=== PATIENT | male | born 1930 | race Caucasian/White ===

== ENCOUNTER → 2017-12-08 | Day surgery (SDC) | payer MEDICARE ==
[~2017-12-08] VITALS: Ht 167.6 cm; Wt 68.1 kg
[~2017-12-08] MED LIST: CALC1TAB87 PO; CALC667C PO; CHLORHEXIDINE GLUCONATE 2 % 1 PACK (2 CLOTHS) TOPICAL PRN; CLOPIDOGREL 75 MG TAB PO ONE; DEXAMETHASONE SOD PHOS 4 MG/ML VIAL IV ONE; DO NOT ADM ANY ANTICOAGULANT DRUGS PRN; DONE10TA7 PO; HEPARIN SODIUM - IV 10,000 UNITS/10 ML VIAL ONE; HEPARIN-NS/PF INJ 500 ML ONE; HYDR-3133 PO; INSULIN HUMAN REGULAR 1,000 UNITS/10 ML VIAL SQ PRN; IOHEXOL 350 MG/ML 100 ML BTL (for RAD DIAG) IVCONTRAST ONE; LACTATED RINGER'S 1000 ML IV PRN; LATA0.002 EACH EYE; LIDOCAINE HCL 1% PF 5 ML SYRINGE OTHER ONE; METOPROLOL TARTRATE 25 MG TAB PO PRN; ONDANSETRON HCL 4 MG/2 ML VIAL IV ONE; POVIDONE IODINE 5% (ANTISEPSIS KIT) 4 APPLICATIONS EACH NARE PRN; PROPOFOL 200 MG/20 ML AMP IV ONE; SODIUM CHLORID 0.9% 500 ML IV PRN; WARF-20 PO; ceFAZolin 2 GM PREMIX 50 ML ONE; ePHEDrine/NS 25 MG/5 ML SYRINGE IV ONE
[2017-12-08 11:54] LABS: BASOPHIL # 0.1 TH/MM3 (0-0.2); BASOPHIL % 1.3 % (0.0-2.0); EOSINOPHIL # 0.3 TH/MM3 (0-0.4); EOSINOPHIL % 3.9 % (0.0-4.0); HEMATOCRIT 32.8 % (39.0-51.0); HEMOGLOBIN 10.6 GM/DL (13.0-17.0); LYMPH % 8.6 % (9.0-44.0); LYMPHOCYTE # 0.7 TH/MM3 (1.0-4.8); MEAN CELL VOLUME 97.2 FL (80.0-100.0); MEAN CORPUSCULAR HEMOGLOBIN 31.6 PG (27.0-34.0); MEAN CORPUSCULAR HGB CONC 32.5 % (32.0-36.0); MEAN PLATELET VOLUME 7.9 FL (7.0-11.0); MONO % 7.9 % (0.0-8.0); MONOCYTE # 0.6 TH/MM3 (0-0.9); NEUT % 78.3 % (16.0-70.0); PLATELET COUNT 313 TH/MM3 (150-450); RED BLOOD COUNT 3.37 MIL/MM3 (4.50-5.90); RED CELL DISTRIBUTION WIDTH 15.7 % (11.6-17.2); WHITE BLOOD COUNT 7.7 TH/MM3 (4.0-11.0)
[2017-12-08 12:04] LABS: INTERNATIONAL NORMALIZED RATIO 1.7 RATIO; PROTHROMBIN TIME - PATIENT 16.7 SEC (9.8-11.6)
[2017-12-08 12:17] LABS: BICARBONATE 21.1 MEQ/L (21.0-32.0); CALCIUM 9.1 MG/DL (8.5-10.1)
[2017-12-08 12:25] LABS: CREATININE 12.24 MG/DL (0.60-1.30)
--- NOTE | 2017-12-08 13:07 | PD.VS.PN ---
Pre-operative Note Pre-operative diagnosis: PAD, R LE tissue loss Planned procedure: Aortogram w/ R LE angiogram, possible endovascular intervention Interval History: No change that would preclude surgery. TL R foot stable. [place] sick yesterday but better today. Last HD Tuesday. Labs: Laboratory Results Test 12/08/17 11:30 Anion Gap 15 MEQ/L (5-15) Blood Urea Nitrogen 63 MG/DL (7-18) Creatinine 12.24 MG/DL (0.60-1.30) Random Glucose 89 MG/DL (74-106) Calcium Level 9.1 MG/DL (8.5-10.1) Sodium Level 140 MEQ/L (136-145) Potassium Level 5.1 MEQ/L (3.5-5.1) Chloride Level 104 MEQ/L (98-107) Carbon Dioxide Level 21.1 MEQ/L (21.0-32.0) Hematocrit 32.8 % (39.0-51.0) Hemoglobin 10.6 GM/DL (13.0-17.0) Mean Corpuscular Hemoglobin 31.6 PG (27.0-34.0) Mean Corpuscular Hemoglobin Concent 32.5 % (32.0-36.0) Mean Corpuscular Volume 97.2 FL (80.0-100.0) Mean Platelet Volume 7.9 FL (7.0-11.0) Platelet Count 313 TH/MM3 (150-450) Prothromb Time International Ratio 1.7 RATIO Red Blood Count 3.37 MIL/MM3 (4.50-5.90) Red Cell Distribution Width 15.7 % (11.6-17.2) White Blood Count 7.7 TH/MM3 (4.0-11.0) Blood: none needed Imaging: will make in OR Orders: NPO Post-operative destination: PACU Operative site marked: Yes Consent: Informed consent has been obtained from Javi Graff. I have explained the procedure in detail and discussed the risks, benefits, and potential complications. All questions have been answered. Patient contact information: [phone] Estiven Maurice MD Dec 08, 2017 13:06
--- NOTE | 2017-12-08 14:40 | HHI.PR ---
cc: Estiven Maurice MD Immediate Post Op Note Procedure Date: Dec 08, 2017 Pre Op Diagnosis: PAD, R LE tissue loss Post Op Diagnosis: PAD, R LE tissue loss Surgeon: Estiven Maurice Insurance Counselor(s): none Procedure: Aortogram w/ R LE angiogram R SFA MATERIAL DAMAGE APPRAISER/stent (6x80) L FURNITURE DETAILER Angioseal Findings: proximal SFA occlusion, successful recanalization and stent Additional Information: AT runoff to foot Complications: none Specimen(s) removed: none Estimated blood loss: 10mL Anesthesia: LMA Drains: None Patient to: PACU Patient Condition: Good Implant/Devices: SEE IMPLANT LOG (if applicable) Date/Time of Procedure: SEE SURGICAL CARE RECORD Estiven Maurice MD Dec 08, 2017 14:40
--- NOTE | 2017-12-08 15:18 | MP ---
cc: Estiven Maurice MD DATE OF OPERATION: 12/08/2017 PREOPERATIVE DIAGNOSES: Right lower extremity tissue loss, peripheral arterial occlusive disease, end-stage renal disease. POSTOPERATIVE DIAGNOSES: Right lower extremity tissue loss, peripheral arterial occlusive disease, end-stage renal disease. PROCEDURE PERFORMED: 1. Aortogram with right lower extremity angiogram. 2. Right SFA angioplasty and stent with a 6 x 80 self-expanding stent. 3. Left common femoral artery Angio-Seal. ATTENDING SURGEON: Estiven Maurice MD ANESTHESIA: General. INDICATION FOR PROCEDURE: Mr. Graff is an 87-year-old gentleman with peripheral arterial occlusive disease and a distal toe tip tissue loss. He has no palpable popliteal or pedal pulses and is taken to the operating room for angiographic evaluation and treatment. There is no prior catheter-based imaging available for my review. DESCRIPTION OF PROCEDURE: Informed consent was obtained from the patient. He was taken to the operating room and placed supine on the operating room table. An appropriate timeout was taken to ensure the patient's identity, operative site, and planned procedure. The administration of 2 grams of Ancef was initiated prior to stent implant. The patient will be discontinued after a single preoperative dose. Everyone in the room agreed with the timeout and we proceeded. His bilateral groins were prepped and draped and the left groin was accessed with a 21-gauge micropuncture needle. This was exchanged using Seldinger technique for a micropuncture sheath, through which was 0.035 Glidewire was introduced and the micropuncture sheath was changed for a 5-[place] sheath. A VCF catheter was placed over the wire through the sheath and aortogram with pelvic arteriograms obtained. The Glidewire was reintroduced and navigated down to the right common femoral artery and the VCF catheter was exchanged for a glide catheter, which was used to navigate down to the right common femoral artery and a right lower extremity arteriogram was obtained. The patient was systemically heparinized with 5000 units of IV heparin. A 0.05 Storq wire was introduced and a glide catheter was removed and the 5-[place] sheath removed and a 6-[place]ayan 55 cm Rommel sheath was introduced. A CXI catheter was placed over the Storq wire and the Storq was exchanged for a SECURITY ALARM TECHNICIAN wire. Using the SECURITY ALARM TECHNICIAN wire and CXI catheter, we were able to navigate past the SFA occlusion into the mid SFA, which was patent. An angiogram confirmed this. The entire area was angioplastied with a 5 mm balloon. The completion angiogram showed a residual dissection and this was treated with a 6 x 80 stent, which was postdilated to 5 mm. Completion angiogram showed excellent result without any recoil extravasation and no flow-limiting lesions nor extravasations and the wire and catheter and sheath were removed and the groin was closed with an Angio-Seal. There were no complications. I was present and scrubbed and performed the entire procedure. INTERPRETATION OF IMAGES: The patient has patent infrarenal aorta, common iliac arteries, external iliac artery and hypogastric arteries bilaterally. The right common femoral artery was patent. The profunda is patent. The SFA is occluded proximally but reconstitutes in the mid SFA. The popliteal artery was patent. The anterior tibial artery was patent. The peroneal artery is diseased, but patent down to the ankle and the posterior tibial artery is occluded. After angioplasty and stenting of the SFA, there were no flow-limiting lesions and no hemodynamically significant stenosis. MD WILFRID Alston/BLAS , 02:45 PM , 03:17 PM
[2017-12-08 17:09] VITALS: BP 142/57; PULSE 55; RESP 16; TEMP 97.7; O2SAT 95
--- NOTE | 2017-12-08 19:11 | EKG ---
Date Performed: 12/08/2017 Time Performed: 10:55:04 PTAGE: 87 years EKG: Sinus rhythm BORDERLINE LEFT AXIS DEVIATION MODERATE INTRAVENTRICULAR CONDUCTION DELAY BORDERLINE ECG NO PREVIOUS TRACING DOCTOR: Juvenal Gaona Interpretating Date/Time 12/08/2017 19:08:25
== END | disposition home or self-care (01) ==
LOC: HSDC 10:15
PROVIDERS: ATTEND Surgery
DX: I73.9 Peripheral vascular disease, unspecified (principal); I12.0 Hypertensive chronic kidney disease with stage 5 chronic kidney disease or end stage renal disease; N18.6 End stage renal disease; D63.1 Anemia in chronic kidney disease; Z99.2 Dependence on renal dialysis; Z01.818 Encounter for other preprocedural examination
CPT/HCPCS: 01270; 37226; 75710; 80048; 85025; 85610; 93005; C1725; C1769; C1876; J0690; J1100; J1644; J2405; J7040; Q9967

== ENCOUNTER 2018-07-27 06:16 | Inpatient (IN) ==
[2018-07-27] MEDS ORDERED: Metoprolol Tartrate 25 MG Tablet PO ONE (06:47)
[2018-07-27] MEDS ORDERED: Chlorhexidine Gluconate 2% 1 Pack (2 Cloths) TOPICAL ONE (06:47)
[2018-07-27] MEDS ORDERED: Sodium Chlor 0.9% Inj 500 ML IV.SIG SCH (07:00)
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
[2018-07-27] MEDS ORDERED: Heparin 10,000 UNITS/10 ML Vial (for IV use) ONE (07:48)
[2018-07-27] MEDS ORDERED: Protamine Sulfate Inj 50 MG/5 ML Vial ONE ×2 (07:48→09:58)
[2018-07-27] MEDS ORDERED: ceFAZolin 2 GM Premix Inj 0 GM/0 ML PIGGYBACK IV.SIG ONE (07:48)
[2018-07-27] MEDS ORDERED: Thrombin Topical 20,000 UNIT Spray Kit TOPICAL ONE ×2 (07:49→09:48)
[2018-07-27] MEDS ORDERED: Bupivacaine PF 0.5% Inj 10 ML Vial ONE (07:49)
[2018-07-27] MEDS ORDERED: Heparin/NS PF Inj 500 ML ONE (07:49)
[2018-07-27] MEDS ORDERED: Lidocaine PF 1% Inj 5 ML Syringe OTHER ONE (08:09)
[2018-07-27] MEDS ORDERED: Neostigmine Inj 5 MG/5 ML Syringe IV.PUSH ONE (08:09)
[2018-07-27] MEDS ORDERED: Sodium Chlor 0.9% Inj 1,000 ML IV.CONT ONE (08:09)
[2018-07-27] MEDS ORDERED: Glycopyrrolate Inj 1 MG/5 ML Syringe IV.PUSH ONE (08:09)
[2018-07-27] MEDS ORDERED: Phenylephrine/NS 1000 MCG/10ML Syringe IV.PUSH ONE (08:09)
[2018-07-27] MEDS ORDERED: Esmolol Bolus Inj 100 MG/10 ML Vial IV.PUSH ONE (08:09)
[2018-07-27] MEDS ORDERED: Sodium Chlor 0.9% Inj 250 ML IV.CONT ONE (08:09)
--- NOTE | 2018-07-27 10:45 | P.OP ---
- Preoperative Diagnosis (1) PAD (peripheral artery disease) - Postoperative Diagnosis (1) PAD (peripheral artery disease) Date of procedure: 07/27/18 Procedure: R fem-BK pop with PTFE Implants: 6mm PTFE Anesthesia: GETA Surgeon: Estiven Maurice MD Customer Advocacy Manager: Estiven Thomas Estimated blood loss (mL): 75 IV fluids (mL): 1,000 Pathology: none sent Operation and Findings: great DP signal after bypass
[2018-07-27] MEDS ORDERED: Bisacodyl 10 MG Supp RECTAL PRN (10:47)
[2018-07-27] MEDS ORDERED: fentaNYL Citrate Inj 100 MCG/2 ML Ampul ONE (11:03)
[2018-07-27] MEDS ORDERED: *morphine SULFATE 4 MG/ML PERIprocedure ONLY ONE (11:04)
[2018-07-27] MEDS ORDERED: HYDROmorphone PF Inj 0.5 MG/0.5 ML Syringe ONE ×3 (11:23→12:35)
--- NOTE | 2018-07-27 11:45 | XR ---
EXAM DATE: 07/27/2018 11:32 AM EST AGE/SEX: 88 years / Male INDICATIONS: Evaluate for osteomyelitis. CLINICAL DATA: This is the patient's initial encounter. Patient reports that signs and symptoms have been present for 1 day and indicates a pain score of 0/10. MEDICAL/SURGICAL HISTORY: Hypertension. None. COMPARISON: No prior exams available for comparison. FINDINGS: Osseous structures are osteopenic. The osseous structures are in normal alignment. No evidence of foc al bony destruction or periosteal reaction. Prominent vascular calcification about the ankle and inte rdigital vessels. Soft tissue fat about the tip of the first digit with marked thinning and possible ulceration. CONCLUSION: 1. Diffuse osteopenia without focal areas of bony destruction or resorption. 2. Abnormal appearance of the soft tissues of the distal first digit with possible ulceration. Electronically signed by: Sushil Pugh MD Board Certified Radiologist 07/27/2018 11:44 AM EST
--- NOTE | 2018-07-27 14:44 | MP ---
cc: Estiven Maurice MD DATE OF OPERATION: PREOPERATIVE DIAGNOSIS: Right lower extremity ischemic tissue loss. POSTOPERATIVE DIAGNOSIS: Right lower extremity ischemic tissue loss. PROCEDURE PERFORMED: Right femoral to below-knee popliteal bypass with 6 mm PTFE. ATTENDING SURGEON: Estiven Maurice MD. MIXER HELPER SURGEON: Estiven Thomas. ANESTHESIA: General, INDICATIONS: Mr. Graff is an 88-year-old gentleman with right lower extremity tissue loss. He has nonpalpable pedal pulses and a failed SFA intervention. He was taken to the operating room for distal bypass. DESCRIPTION OF PROCEDURE: Informed consent was obtained. The patient was taken to the operating room and placed supine on the operating table. Appropriate timeout was taken to ensure the patient's identity, operative site and planned procedure. One gram of vancomycin was initiated prior to skin incision and will be discontinued after a single preoperative dose. Vancomycin was chosen because of the patient's end-stage renal disease. Everyone in the room agreed and we proceeded. He was prepped from his nipples to his toes. A vertical incision was made in the patient's right groin and carried down through subcutaneous tissue with electrocautery. The common femoral artery, profunda and SFA were all dissected free. A separate incision was made in the below-knee popliteal artery area on the medial aspect of the proximal calf, carried down through subcutaneous tissue with electrocautery. The below-knee popliteal artery was dissected free and a tunnel was then created between these two and 6 mm PTFE was passed through this, taking caution not to twist it. The patient was systemically heparinized with 7000 units of intravenous heparin. Proximal control of the common femoral artery and distal control of the proximal profunda and SFA were obtained with profunda clamps and a longitudinal arteriotomy was made with an 11-blade, extended with Alex scissors. The graft was spatulated and sewn end-to-side with running 5-0 Prolene suture. At the completion, it was flushed and noted to be hemostatic. A ____ was placed on the graft. The proximal and distal control of the below-knee popliteal artery were obtained with profunda clamps and a longitudinal arteriotomy was made with an 11-blade, extended with Jackson scissors. The graft was cut to appropriate length, spatulated, and sewn end-to-side with running 6-0 Prolene suture. At the occlusion it was flushed and noted to be hemostatic, clamps were released. There was excellent Doppler signal in the foot. The heparin was reversed with protamine. The wounds were made hemostatic; infiltrated with Marcaine and closed with 2-0 Polysorb, 3-0 Polysorb and 4-0 Monocryl. Sponge and needle counts were correct at the end of the case. I was present and scrubbed and performed the entire procedure. Estiven Maurice MD RJJimmy/joni/ll , 01:49 PM , 01:57 PM
[2018-07-27] MEDS ORDERED: Sod Chloride 0.9% Inj 1,000 ML IV.CONT PRN (17:13)
[2018-07-27] MEDS ORDERED: Gelatin 12 MM/7 MM Topical Foam TOPICAL PRN (17:13)
[2018-07-27] MEDS ORDERED: Heparin 10,000 UNITS/10 ML Vial (for IV use) OTHER PRN ×2 (17:13)
[2018-07-27] MEDS ORDERED: Albumin Human 25% Inj 100 ML IV.SIG PRN (17:13)
[2018-07-27] MEDS ORDERED: Sod Chloride 0.9% Inj 1,000 ML OTHER PRN ×2 (17:13)
[2018-07-27] MEDS ORDERED: Acetaminophen 325 MG Tablet PO PRN (17:13)
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
[2018-07-27] MEDS: Latanoprost 0.005% Opth Drops 2.5 ML Bottle EACH EYE SCH (21:27)
[2018-07-27] MEDS: Calcium Acetate 667 MG Capsule PO SCH (21:30)
[2018-07-27] MEDS: Senna/Docusate Sodium 8.6/50 MG Tablet PO SCH (21:30)
[2018-07-27 23:11] LABS: Hepatitits B Surface Antigen Nonreactive (Nonreactive)
[2018-07-27 23:38] LABS: Hepatitis A IgM Antibody Nonreactive (Nonreactive)
[2018-07-28 04:27] LABS: Hematocrit 31.5 % (39.0-51.0); Hemoglobin 10.2 gm/dL (13.0-17.0); Mean Corpuscular HGB Conc 32.4 % (32.0-36.0); Mean Corpuscular Hemoglobin 29.8 pg (27.0-34.0); Mean Corpuscular Volume 91.9 fL (80.0-100.0); Mean Platelet Volume 7.3 fL (7.0-11.0); Platelet Count 268 th/mm3 (150-450); Red Blood Count 3.43 mil/mm3 (4.50-5.90); Red Cell Distribution Width 17.2 % (11.6-17.2); White Blood Count 8.9 th/mm3 (4.0-11.0)
[2018-07-28 04:56] LABS: Calcium 7.9 mg/dL (8.5-10.1); Carbon Dioxide 22.9 meq/L (21.0-32.0)
--- NOTE | 2018-07-28 08:08 | P.PNVS ---
Subjective Post Op Day #: 1 Procedure: R fem-BK pop with PTFE Subjective/Hospital Course: looks great, doesn't endorse pain resting comfortably Objective Vital Signs / I&O: Vital Signs 07/27/18 10:48 07/27/18 11:45 07/27/18 12:00 Temperature 97.5 F L 97.7 F Pulse Rate 93 H 98 H 91 H Respiratory Rate 19 15 14 Blood Pressure 101/54 L 118/58 L 124/58 L Pulse Oximetry 94 L 95 95 07/27/18 13:00 07/27/18 13:07 07/27/18 13:16 Temperature Pulse Rate 92 H Respiratory Rate 20 12 12 Blood Pressure 108/55 L Pulse Oximetry 95 07/27/18 13:17 07/27/18 13:45 07/27/18 15:00 Temperature Pulse Rate 95 H 93 H Respiratory Rate 12 18 Blood Pressure 112/53 L Pulse Oximetry 95 07/27/18 16:00 07/27/18 16:10 07/27/18 17:00 Temperature 97.5 F L Pulse Rate 91 H 91 H 101 H Respiratory Rate 20 Blood Pressure 110/55 L Pulse Oximetry 07/27/18 18:00 07/27/18 19:00 07/27/18 20:00 Temperature 97.5 F L Pulse Rate 85 90 98 H Respiratory Rate 20 Blood Pressure 123/58 L Pulse Oximetry 07/27/18 21:00 07/27/18 21:21 07/27/18 22:00 Temperature Pulse Rate 80 72 Respiratory Rate Blood Pressure Pulse Oximetry 95 07/27/18 23:00 07/28/18 00:00 07/28/18 01:00 Temperature 97.8 F Pulse Rate 74 85 80 Respiratory Rate 20 Blood Pressure 125/57 L Pulse Oximetry 07/28/18 02:00 07/28/18 03:00 07/28/18 04:00 Temperature 97.1 F L Pulse Rate 74 81 80 Respiratory Rate 20 Blood Pressure 135/61 Pulse Oximetry 07/28/18 05:00 07/28/18 06:00 Temperature Pulse Rate 76 78 Respiratory Rate Blood Pressure Pulse Oximetry Intake & Output 07/27/18 07/28/18 07/28/18 18:59 06:59 18:59 Intake Total 2480 / 2480 480 / 480 Output Total 75 / 75 100 / 100 Balance 2405 / 2405 380 / 380 Weight 68.5 kg Intake: IV 1000 / 1000 Heparin/NS PF Inj 500 ML @ 0 500 / 500 mls/hr .ROUTE .[facility] Rx#: [id number] NS Inj 500 ML @ 30 mls/hr IV. 500 / 500 SIG .Q10H [facility] Rx#:[id number] Oral 480 / 480 480 / 480 Anesthesia Amount 1000 / 1000 Output: Urine 100 / 100 Estimated Blood Loss 75 / 75 Other: # Bowel Movements 0 Exam: R groin Prevena intact without underlying swelling R BK incision c/d/i strong DP signal motor intact Laboratory Results - last 24 hr 07/27/18 07/28/18 07/28/18 20:54 04:12 04:12 WBC 8.9 RBC 3.43 L Hgb 10.2 L Hct 31.5 L MCV 91.9 MCH 29.8 MCHC 32.4 RDW 17.2 Plt Count 268 MPV 7.3 Sodium 137 Potassium 6.0 H D Chloride 101 Carbon Dioxide 22.9 Anion Gap 13 BUN 60 H Creatinine 8.31 H Estimated GFR 6 L Random Glucose 118 H Calcium 7.9 L Hepatitis A IgM Ab Nonreactive Hep Bs Antigen Nonreactive Hep B Core IgM Ab Nonreactive Hep C IgG Ab Nonreactive Assessment and Plan - Assessment (1) PAD (peripheral artery disease) Code(s): I73.9 - Peripheral vascular disease, unspecified Status: Acute - Plan POD#1 s/p R LE revascularization looks great 1. OOB / PT ambulate ad joni 2. HD today - nephrology aware 3. podiatry consult pending 4. ASA/statin/plavix Discharge Plannin-3 days to home vs rehab pending mobility
--- NOTE | 2018-07-28 10:02 | P.PNNP ---
Subjective Interval history: Seen during hemodialysis, tolerating well. Wound vac to right groin site. Reports minimal pain at site. <Abby Isaac - Last Filed: 07/28/18 09:55> Physical Exam Vital signs: Vital Signs 07/27/18 10:48 07/27/18 11:45 07/27/18 12:00 Temperature 97.5 F L 97.7 F Pulse Rate 93 H 98 H 91 H Respiratory Rate 19 15 14 Blood Pressure 101/54 L 118/58 L 124/58 L Pulse Oximetry 94 L 95 95 07/27/18 13:00 07/27/18 13:07 07/27/18 13:16 Temperature Pulse Rate 92 H Respiratory Rate 20 12 12 Blood Pressure 108/55 L Pulse Oximetry 95 07/27/18 13:17 07/27/18 13:45 07/27/18 15:00 Temperature Pulse Rate 95 H 93 H Respiratory Rate 12 18 Blood Pressure 112/53 L Pulse Oximetry 95 07/27/18 16:00 07/27/18 16:10 07/27/18 17:00 Temperature 97.5 F L Pulse Rate 91 H 91 H 101 H Respiratory Rate 20 Blood Pressure 110/55 L Pulse Oximetry 07/27/18 18:00 07/27/18 19:00 07/27/18 20:00 Temperature 97.5 F L Pulse Rate 85 90 98 H Respiratory Rate 20 Blood Pressure 123/58 L Pulse Oximetry 07/27/18 21:00 07/27/18 21:21 07/27/18 22:00 Temperature Pulse Rate 80 72 Respiratory Rate Blood Pressure Pulse Oximetry 95 07/27/18 23:00 07/28/18 00:00 07/28/18 01:00 Temperature 97.8 F Pulse Rate 74 85 80 Respiratory Rate 20 Blood Pressure 125/57 L Pulse Oximetry 07/28/18 02:00 07/28/18 03:00 07/28/18 04:00 Temperature 97.1 F L Pulse Rate 74 81 80 Respiratory Rate 20 Blood Pressure 135/61 Pulse Oximetry 07/28/18 05:00 07/28/18 06:00 07/28/18 07:00 Temperature Pulse Rate 76 78 71 Respiratory Rate Blood Pressure Pulse Oximetry 07/28/18 08:00 07/28/18 08:44 Temperature 98.2 F Pulse Rate 83 Respiratory Rate 20 Blood Pressure 141/63 H Pulse Oximetry 98 98 Intake & Output 07/27/18 07/28/18 07/28/18 18:59 06:59 18:59 Intake Total 2480 / 2480 480 / 480 Output Total 75 / 75 100 / 100 Balance 2405 / 2405 380 / 380 Weight 68.5 kg Intake: IV 1000 / 1000 Heparin/NS PF Inj 500 ML @ 0 500 / 500 mls/hr .ROUTE [facility] Rx#: [id number] NS Inj 500 ML @ 30 mls/hr IV. 500 / 500 SIG .Q10H [facility] Rx#:[id number] Oral 480 / 480 480 / 480 Anesthesia Amount 1000 / 1000 Output: Urine 100 / 100 Estimated Blood Loss 75 / 75 Other: # Bowel Movements 0 Narrative: GENERAL: Alert [place] SKIN: Warm and dry. No rash. Right groin with wound vac on and incision on lower extremity well approximated. NECK: Supple, trachea midline. No JVD CARDIOVASCULAR: Regular rate and rhythm without murmurs, gallops, or rubs. AVF positive thrill and bruit. RESPIRATORY: Breath sounds equal bilaterally. No accessory muscle use. GASTROINTESTINAL: Abdomen soft, non-tender, nondistended. +BS MUSCULOSKELETAL: No cyanosis, or edema. +Pedal pulses, warm BACK: Nontender without obvious deformity. No CVA tenderness. <Abby Isaac - Last Filed: 07/28/18 09:55> Vital signs: Vital Signs 07/28/18 00:00 07/28/18 01:00 07/28/18 02:00 Temperature 97.8 F Pulse Rate 85 80 74 Respiratory Rate 20 Blood Pressure 125/57 L Pulse Oximetry 07/28/18 03:00 07/28/18 04:00 07/28/18 05:00 Temperature 97.1 F L Pulse Rate 81 80 76 Respiratory Rate 20 Blood Pressure 135/61 Pulse Oximetry 07/28/18 06:00 07/28/18 07:00 07/28/18 08:00 Temperature 98.2 F Pulse Rate 78 71 83 Respiratory Rate 20 Blood Pressure 141/63 H Pulse Oximetry 98 07/28/18 08:44 07/28/18 09:00 07/28/18 10:00 Temperature Pulse Rate 81 83 Respiratory Rate Blood Pressure Pulse Oximetry 98 07/28/18 11:00 07/28/18 12:00 07/28/18 13:00 Temperature 97.8 F Pulse Rate 76 85 92 H Respiratory Rate 20 Blood Pressure 131/60 Pulse Oximetry 93 L 07/28/18 14:00 07/28/18 15:00 07/28/18 15:36 Temperature 97.4 F L Pulse Rate 90 93 H 97 H Respiratory Rate 20 Blood Pressure 116/61 Pulse Oximetry 98 07/28/18 16:00 07/28/18 17:00 07/28/18 18:00 Temperature Pulse Rate 90 98 H 97 H Respiratory Rate Blood Pressure Pulse Oximetry 07/28/18 20:56 Temperature Pulse Rate Respiratory Rate Blood Pressure Pulse Oximetry 94 L Intake & Output 07/28/18 07/28/18 07/29/18 06:59 18:59 06:59 Intake Total 480 / 480 480 / 480 Output Total 100 / 100 1999 Balance 380 / 380 -1520 / -1520 Weight 68.5 kg Intake: Oral 480 / 480 480 / 480 Output: Urine 100 / 100 0 / 0 Hemodialysis Amount 1999 Other: # Voids 0 Date of Last Bowel Movement 07/28/18 # Bowel Movements 0 1 <Xochilt Nickerson - Last Filed: 07/28/18 23:04> Assessment and Plan - Assessment (1) End stage renal disease Code(s): N18.6 - End stage renal disease Status: Acute Plan: End stage renal disease on Hemodialysis on Tuesday, Tuesday, Tuesday at [facility] AVF with positive thrill and bruit Continue phoslo Epogen added with dialysis Potassium at 6.0, K bath adjusted with dialysis. Diet changed to renal diet. Seen during hemodialysis, 2 K bath, plan to remove 2 liters of fluid Renal panel in AM (2) PAD (peripheral artery disease) Code(s): I73.9 - Peripheral vascular disease, unspecified Status: Acute Plan: Wound vac intact. Foot with good pulse and warm to touch. <Abby Isaac - Last Filed: 07/28/18 09:55> - Assessment (1) End stage renal disease Code(s): N18.6 - End stage renal disease Status: Acute Plan: Patient seen during HD and examined, agree with above. Post Rt. Fem-Pop Bypass. Now on HD. Remove fluid as tolerated. (2) PAD (peripheral artery disease) Code(s): I73.9 - Peripheral vascular disease, unspecified Status: Acute <Xochilt Nickerson - Last Filed: 07/28/18 23:04>
[2018-07-28] MEDS: Heparin - SQ 10,000 UNITS/ML Vial SQ SCH ×2 (12:57→17:47)
[2018-07-28] MEDS: Calcium Acetate 667 MG Capsule PO SCH ×2 (12:57→21:10)
[2018-07-28] MEDS: Senna/Docusate Sodium 8.6/50 MG Tablet PO SCH ×2 (12:57→21:10)
--- NOTE | 2018-07-28 17:06 | MB ---
cc: Nena Nguyen DPM DATE: 07/28/2018 REASON FOR CONSULTATION: Right hallux osteomyelitis. HISTORY OF PRESENT ILLNESS: The patient is an 88-year-old male with past medical history of ESRD, hypertension, PAD, PVD, status post right fem-pop bypass by Dr. Maurice on 07/27/2018. The patient is seen at bedside along with nursing staff. He is relaxed. No nausea, vomiting, fever, diarrhea or chills. PAST SURGICAL HISTORY: Tonsillectomy, right leg bypass. SOCIAL HISTORY: Denies alcohol, smoking or illicit drugs. MEDICATIONS: Per chart. PHYSICAL EXAMINATION: Right foot DP and PT intact, warm to warm. Right hallux is ulcerated with some necrotic tissue distal tip. Nail plate is intact, but there is a palpable distal phalanx. There is no active drainage, no streaking, no acute sign of infection. Protective sensation grossly intact. Range of motion without crepitus. LABORATORY DATA: WBC on 07/28/2018 of 8.9, RBC 3.43 and H and H 10.2 and 31.5. Right foot x-rays, positive osteopenia, positive ulceration, no apparent periosteal reaction or osteonecrosis. ASSESSMENT AND PLAN: 1. Peripheral vascular disease. 2. Right hallux distal clinical osteomyelitis. 3. Right hallux chronic ulcer. The patient is seen at bedside today and discussed a right hallux partial amputation versus disarticulation. The patient wants to wait to see what the blood flow will achieve. I reiterated that the bone infection as well as the ischemic tissue is not going to improve. I recommended a right hallux disarticulation versus a right hallux partial amputation. I would be happy to continue following the patient. I discussed with Dr. Maurice. Feel free to reconsult as needed. Nena Nguyen DPM SR/maggie , 03:34 PM , 03:40 PM
[2018-07-28] MEDS: Morphine Inj 4 MG/ML Vial IV.PUSH PRN (20:59)
[2018-07-28] MEDS: Latanoprost 0.005% Opth Drops 2.5 ML Bottle EACH EYE SCH (21:10)
[2018-07-29] MEDS: Heparin - SQ 10,000 UNITS/ML Vial SQ SCH ×3 (03:09→17:15)
[2018-07-29] MEDS: Morphine Inj 4 MG/ML Vial IV.PUSH PRN (04:09)
[2018-07-29 06:07] LABS: Carbon Dioxide 30.6 meq/L (21.0-32.0); Phosphorus 5.9 mg/dL (2.5-4.9); Potassium 4.8 meq/L (3.5-5.1)
[2018-07-29] MEDS: Calcium Acetate 667 MG Capsule PO SCH ×3 (09:34→17:15)
[2018-07-29] MEDS: Senna/Docusate Sodium 8.6/50 MG Tablet PO SCH ×2 (09:34→20:06)
--- NOTE | 2018-07-29 10:36 | P.PNVS ---
Subjective Subjective/Hospital Course: Setting comfortably in chair. Tolerating diet Pain control Objective Vital Signs / I&O: Vital Signs 07/28/18 11:00 07/28/18 12:00 07/28/18 13:00 Temperature 97.8 F Pulse Rate 76 85 92 H Respiratory Rate 20 Blood Pressure 131/60 Pulse Oximetry 93 L 07/28/18 14:00 07/28/18 15:00 07/28/18 15:36 Temperature 97.4 F L Pulse Rate 90 93 H 97 H Respiratory Rate 20 Blood Pressure 116/61 Pulse Oximetry 98 07/28/18 16:00 07/28/18 17:00 07/28/18 18:00 Temperature Pulse Rate 90 98 H 97 H Respiratory Rate Blood Pressure Pulse Oximetry 07/28/18 19:00 07/28/18 20:00 07/28/18 20:56 Temperature 98.9 F Pulse Rate 99 H 97 H Respiratory Rate 20 Blood Pressure 111/54 L Pulse Oximetry 95 94 L 07/28/18 21:00 07/28/18 22:00 07/28/18 23:00 Temperature Pulse Rate 90 92 H 92 H Respiratory Rate Blood Pressure Pulse Oximetry 07/29/18 00:00 07/29/18 01:00 07/29/18 02:00 Temperature 98.2 F Pulse Rate 92 H 92 H 94 H Respiratory Rate 20 Blood Pressure 117/57 L Pulse Oximetry 94 L 07/29/18 03:00 07/29/18 04:00 07/29/18 05:00 Temperature 98.7 F Pulse Rate 97 H 100 H 94 H Respiratory Rate 20 Blood Pressure 106/59 L Pulse Oximetry 95 07/29/18 06:00 07/29/18 07:00 07/29/18 08:00 Temperature Pulse Rate 92 H 91 H 98 H Respiratory Rate 16 Blood Pressure 119/58 L Pulse Oximetry 94 L 07/29/18 09:00 07/29/18 10:00 Temperature Pulse Rate 93 H 97 H Respiratory Rate Blood Pressure Pulse Oximetry Intake & Output 07/28/18 07/29/18 07/29/18 18:59 06:59 18:59 Intake Total 480 / 480 240 / 240 Output Total 1999 0 / 0 Balance -1520 / -1520 240 / 240 Weight 68.5 kg Intake: Oral 480 / 480 240 / 240 Output: Urine 0 / 0 0 / 0 Hemodialysis Amount 1999 Other: # Voids 0 Date of Last Bowel Movement 07/28/18 07/28/18 # Bowel Movements 1 Physical Exam: Lower extremity wounds clean dry intact. Right groin wound VAC with good seal Multiphasic right dorsalis pedis, posterior tibial signals. Right great toe dry gangrene stable Laboratory Results - last 24 hr 07/29/18 04:21 Sodium 133 L Potassium 4.8 D Chloride 95 L Carbon Dioxide 30.6 Anion Gap 7 BUN 39 H Creatinine 6.49 H Estimated GFR 8 L Random Glucose 108 H Calcium 8.0 L Phosphorus 5.9 H Albumin 3.0 L Impressions Foot X-Ray 07/27/18 00:00 CONCLUSION: 1. Diffuse osteopenia without focal areas of bony destruction or resorption. 2. Abnormal appearance of the soft tissues of the distal first digit with possible ulceration. Assessment and Plan - Assessment (1) PAD (peripheral artery disease) Code(s): I73.9 - Peripheral vascular disease, unspecified Status: Acute - Plan POD#2 s/p R LE revascularization Seen by podiatry, refusing toe amputation 1. OOB / PT 2. Pain control 3. Possible DC on Tuesday Discharge Plannin-3 days to home vs rehab pending mobility
--- NOTE | 2018-07-29 10:38 | P.PNNP ---
Subjective Interval history: Patient is alert, sitting on the chair, mild pain at surgery site in Rt. leg, no SOB. Physical Exam Vital signs: Vital Signs 07/28/18 11:00 07/28/18 12:00 07/28/18 13:00 Temperature 97.8 F Pulse Rate 76 85 92 H Respiratory Rate 20 Blood Pressure 131/60 Pulse Oximetry 93 L 07/28/18 14:00 07/28/18 15:00 07/28/18 15:36 Temperature 97.4 F L Pulse Rate 90 93 H 97 H Respiratory Rate 20 Blood Pressure 116/61 Pulse Oximetry 98 07/28/18 16:00 07/28/18 17:00 07/28/18 18:00 Temperature Pulse Rate 90 98 H 97 H Respiratory Rate Blood Pressure Pulse Oximetry 07/28/18 19:00 07/28/18 20:00 07/28/18 20:56 Temperature 98.9 F Pulse Rate 99 H 97 H Respiratory Rate 20 Blood Pressure 111/54 L Pulse Oximetry 95 94 L 07/28/18 21:00 07/28/18 22:00 07/28/18 23:00 Temperature Pulse Rate 90 92 H 92 H Respiratory Rate Blood Pressure Pulse Oximetry 07/29/18 00:00 07/29/18 01:00 07/29/18 02:00 Temperature 98.2 F Pulse Rate 92 H 92 H 94 H Respiratory Rate 20 Blood Pressure 117/57 L Pulse Oximetry 94 L 07/29/18 03:00 07/29/18 04:00 07/29/18 05:00 Temperature 98.7 F Pulse Rate 97 H 100 H 94 H Respiratory Rate 20 Blood Pressure 106/59 L Pulse Oximetry 95 07/29/18 06:00 07/29/18 07:00 07/29/18 08:00 Temperature Pulse Rate 92 H 91 H 98 H Respiratory Rate 16 Blood Pressure 119/58 L Pulse Oximetry 94 L 07/29/18 09:00 07/29/18 10:00 Temperature Pulse Rate 93 H 97 H Respiratory Rate Blood Pressure Pulse Oximetry Intake & Output 07/28/18 07/29/18 07/29/18 18:59 06:59 18:59 Intake Total 480 / 480 240 / 240 Output Total 1999 0 / 0 Balance -1520 / -1520 240 / 240 Weight 68.5 kg Intake: Oral 480 / 480 240 / 240 Output: Urine 0 / 0 0 / 0 Hemodialysis Amount 1999 Other: # Voids 0 Date of Last Bowel Movement 07/28/18 07/28/18 # Bowel Movements 1 Narrative: GENERAL: Alert [place] SKIN: Warm and dry. No rash. Right groin with wound vac on and incision on lower extremity well approximated. NECK: Supple, trachea midline. No JVD CARDIOVASCULAR: Regular rate and rhythm without murmurs, gallops, or rubs. AVF positive thrill and bruit. RESPIRATORY: Breath sounds equal bilaterally. No accessory muscle use. GASTROINTESTINAL: Abdomen soft, non-tender, nondistended. +BS MUSCULOSKELETAL: No cyanosis, or edema. +Pedal pulses, warm BACK: Nontender without obvious deformity. No CVA tenderness. Assessment and Plan - Assessment (1) End stage renal disease Code(s): N18.6 - End stage renal disease Status: Acute Plan: Patient with end stage renal disease, has been on HD MWF. Admitted with PVD and non healing Rt. big toe ulceration. Patient is Post Rt. Fem-Pop Bypass. HD done yesterday, tolerated well. K is now normal. BP is stable. (2) PAD (peripheral artery disease) Code(s): I73.9 - Peripheral vascular disease, unspecified Status: Acute Plan: Wound vac intact. Foot with good pulse and warm to touch.
[2018-07-29] MEDS: Latanoprost 0.005% Opth Drops 2.5 ML Bottle EACH EYE SCH (20:07)
[2018-07-30] MEDS: Morphine Inj 4 MG/ML Vial IV.PUSH PRN (01:07)
[2018-07-30] MEDS: Heparin - SQ 10,000 UNITS/ML Vial SQ SCH ×3 (01:08→17:32)
[2018-07-30] MEDS: Calcium Acetate 667 MG Capsule PO SCH ×3 (08:40→17:32)
[2018-07-30] MEDS: Senna/Docusate Sodium 8.6/50 MG Tablet PO SCH ×2 (08:41→20:31)
--- NOTE | 2018-07-30 10:50 | P.PNVS ---
Subjective Post Op Day #: 3 Procedure: R fem-BK pop with PTFE Subjective/Hospital Course: Laying comfortably in bed Tolerating diet Objective Vital Signs / I&O: Vital Signs 07/29/18 11:00 07/29/18 12:00 07/29/18 13:00 Temperature 99.9 F H Pulse Rate 95 H 95 H 98 H Respiratory Rate 16 Blood Pressure 101/52 L Pulse Oximetry 94 L 07/29/18 14:00 07/29/18 15:00 07/29/18 16:00 Temperature 98.5 F Pulse Rate 93 H 94 H 94 H Respiratory Rate 16 Blood Pressure 111/54 L Pulse Oximetry 96 07/29/18 17:00 07/29/18 18:00 07/29/18 19:00 Temperature Pulse Rate 105 H 98 H 103 H Respiratory Rate Blood Pressure Pulse Oximetry 07/29/18 20:00 07/29/18 20:48 07/29/18 21:00 Temperature 98.9 F Pulse Rate 99 H 91 H Respiratory Rate 16 Blood Pressure 128/58 L Pulse Oximetry 96 96 07/29/18 22:00 07/29/18 22:55 07/29/18 23:26 Temperature 98.5 F Pulse Rate 91 H 103 H 97 H Respiratory Rate 18 Blood Pressure 119/60 Pulse Oximetry 97 07/30/18 00:00 07/30/18 00:59 07/30/18 02:00 Temperature Pulse Rate 98 H 118 H 118 H Respiratory Rate Blood Pressure Pulse Oximetry 07/30/18 03:00 07/30/18 03:27 07/30/18 03:53 Temperature 98.1 F Pulse Rate 97 H 104 H 105 H Respiratory Rate 18 Blood Pressure 119/68 Pulse Oximetry 97 07/30/18 05:00 07/30/18 05:54 07/30/18 07:00 Temperature Pulse Rate 107 H 104 H 113 H Respiratory Rate Blood Pressure Pulse Oximetry 07/30/18 08:00 07/30/18 09:00 07/30/18 09:57 Temperature 98.5 F Pulse Rate 64 86 Respiratory Rate 13 12 Blood Pressure 141/63 H Pulse Oximetry 92 L 07/30/18 10:00 Temperature Pulse Rate 87 Respiratory Rate Blood Pressure Pulse Oximetry Intake & Output 07/29/18 07/30/18 07/30/18 18:59 06:59 18:59 Intake Total 800 / 800 240 / 240 Output Total 0 / 0 0 / 0 Balance 800 / 800 240 / 240 Intake: Oral 800 / 800 240 / 240 Output: Urine 0 / 0 0 / 0 Other: # Bowel Movements 0 Exam: Multiphasic pedal signals bilaterally. Right lower extremity wounds clean dry intact. Assessment and Plan - Assessment (1) PAD (peripheral artery disease) Code(s): I73.9 - Peripheral vascular disease, unspecified Status: Acute - Plan POD#3 s/p R LE revascularization Seen by podiatry, refusing toe amputation Right groin wound VAC was replaced this morning Patient was seen by PT yesterday. He is very hard to move from chair to bed and inpatient rehab will be preferred. Case management consulted Lab holiday today, hemodialysis tomorrow. Discharge Plannin-3 days to home vs rehab pending mobility
--- NOTE | 2018-07-30 12:23 | P.PNNP ---
Subjective Interval history: Patient is alert, sitting on the chair, mild Rt. leg pain, no SOB. Physical Exam Vital signs: Vital Signs 07/29/18 13:00 07/29/18 14:00 07/29/18 15:00 Temperature Pulse Rate 98 H 93 H 94 H Respiratory Rate Blood Pressure Pulse Oximetry 07/29/18 16:00 07/29/18 17:00 07/29/18 18:00 Temperature 98.5 F Pulse Rate 94 H 105 H 98 H Respiratory Rate 16 Blood Pressure 111/54 L Pulse Oximetry 96 07/29/18 19:00 07/29/18 20:00 07/29/18 20:48 Temperature 98.9 F Pulse Rate 103 H 99 H Respiratory Rate 16 Blood Pressure 128/58 L Pulse Oximetry 96 96 07/29/18 21:00 07/29/18 22:00 07/29/18 22:55 Temperature Pulse Rate 91 H 91 H 103 H Respiratory Rate Blood Pressure Pulse Oximetry 07/29/18 23:26 07/30/18 00:00 07/30/18 00:59 Temperature 98.5 F Pulse Rate 97 H 98 H 118 H Respiratory Rate 18 Blood Pressure 119/60 Pulse Oximetry 97 07/30/18 02:00 07/30/18 03:00 07/30/18 03:27 Temperature 98.1 F Pulse Rate 118 H 97 H 104 H Respiratory Rate 18 Blood Pressure 119/68 Pulse Oximetry 97 07/30/18 03:53 07/30/18 05:00 07/30/18 05:54 Temperature Pulse Rate 105 H 107 H 104 H Respiratory Rate Blood Pressure Pulse Oximetry 07/30/18 07:00 07/30/18 08:00 07/30/18 09:00 Temperature 98.5 F Pulse Rate 113 H 64 86 Respiratory Rate 13 Blood Pressure 141/63 H Pulse Oximetry 92 L 07/30/18 09:57 07/30/18 10:00 Temperature Pulse Rate 87 Respiratory Rate 12 Blood Pressure Pulse Oximetry Intake & Output 07/29/18 07/30/18 07/30/18 18:59 06:59 18:59 Intake Total 800 / 800 240 / 240 Output Total 0 / 0 0 / 0 Balance 800 / 800 240 / 240 Intake: Oral 800 / 800 240 / 240 Output: Urine 0 / 0 0 / 0 Other: # Bowel Movements 0 Narrative: GENERAL: Alert [place] SKIN: Warm and dry. No rash. Right groin with wound vac on and incision on lower extremity well approximated. NECK: Supple, trachea midline. No JVD CARDIOVASCULAR: Regular rate and rhythm without murmurs, gallops, or rubs. AVF positive thrill and bruit. RESPIRATORY: Breath sounds equal bilaterally. No accessory muscle use. GASTROINTESTINAL: Abdomen soft, non-tender, nondistended. +BS MUSCULOSKELETAL: No cyanosis, or edema. +Pedal pulses, warm BACK: Nontender without obvious deformity. No CVA tenderness. Assessment and Plan - Assessment (1) End stage renal disease Code(s): N18.6 - End stage renal disease Status: Acute Plan: Patient with end stage renal disease, has been on HD MWF. Admitted with PVD and non healing Rt. big toe ulceration. Patient is Post Rt. Fem-Pop Bypass. HD done on Tue, tolerated well. K is now normal. BP is stable. Possible discharge and to go to SNF. (2) PAD (peripheral artery disease) Code(s): I73.9 - Peripheral vascular disease, unspecified Status: Acute Plan: Wound vac intact. Foot with good pulse and warm to touch. - Plan Patient seen and examined, agree with above. BP is stable, seen during HD. Post Rt. Fem-Pop Bypass. Continue HD MWF.
[2018-07-30] MEDS: Latanoprost 0.005% Opth Drops 2.5 ML Bottle EACH EYE SCH (20:31)
[2018-07-31] MEDS: Heparin - SQ 10,000 UNITS/ML Vial SQ SCH ×3 (02:46→17:56)
[2018-07-31] MEDS: Senna/Docusate Sodium 8.6/50 MG Tablet PO SCH ×2 (08:25→21:07)
[2018-07-31] MEDS: Calcium Acetate 667 MG Capsule PO SCH ×3 (08:25→17:55)
--- NOTE | 2018-07-31 09:17 | P.PNVS ---
Subjective Post Op Day #: 4 Procedure: R fem-BK pop with PTFE Subjective/Hospital Course: 88/M hard of hearing, speech clear, NAD Pt s/p R LE distal bypass (R femoral artery to below the knee popliteal artery) POD 4 Pt sitting up in chair w/ a complaint of R LE thigh discomfort Wound vac to R groin intact soft/w/o hematoma or swelling Incision intact Palpable R DP Discussed out pt SNF for continued rehabilitative services- pt agrees Objective Vital Signs / I&O: Vital Signs 07/30/18 09:00 07/30/18 09:57 07/30/18 10:00 Temperature Pulse Rate 86 87 Respiratory Rate 12 Blood Pressure Pulse Oximetry 07/30/18 11:00 07/30/18 12:00 07/30/18 13:00 Temperature 97.7 F Pulse Rate 93 H 93 H 94 H Respiratory Rate 14 Blood Pressure 136/64 Pulse Oximetry 98 07/30/18 14:00 07/30/18 14:12 07/30/18 15:00 Temperature Pulse Rate 87 87 Respiratory Rate 14 Blood Pressure Pulse Oximetry 07/30/18 15:30 07/30/18 16:00 07/30/18 17:00 Temperature 97.8 F Pulse Rate 84 83 92 H Respiratory Rate 15 Blood Pressure 120/58 L Pulse Oximetry 98 07/30/18 18:00 07/30/18 18:16 07/30/18 19:00 Temperature Pulse Rate 84 82 Respiratory Rate 15 Blood Pressure Pulse Oximetry 07/30/18 20:00 07/30/18 21:00 07/30/18 22:00 Temperature 97 F L Pulse Rate 82 84 86 Respiratory Rate 16 Blood Pressure 138/64 Pulse Oximetry 94 L 07/30/18 23:00 07/31/18 00:00 07/31/18 01:00 Temperature 98 F Pulse Rate 85 86 87 Respiratory Rate 16 Blood Pressure 130/60 Pulse Oximetry 95 07/31/18 02:00 07/31/18 03:00 07/31/18 03:13 Temperature 98.2 F Pulse Rate 86 83 87 Respiratory Rate 16 Blood Pressure 145/63 H Pulse Oximetry 95 07/31/18 04:00 07/31/18 05:00 07/31/18 05:40 Temperature Pulse Rate 88 89 95 H Respiratory Rate Blood Pressure Pulse Oximetry 07/31/18 07:00 Temperature Pulse Rate 101 H Respiratory Rate Blood Pressure Pulse Oximetry Intake & Output 07/30/18 07/31/18 07/31/18 18:59 06:59 18:59 Intake Total 630 / 630 240 / 240 Output Total 0 / 0 Balance 630 / 630 240 / 240 Intake: Oral 630 / 630 240 / 240 Output: Urine 0 / 0 Other: Date of Last Bowel Movement 07/30/18 Exam: GENERAL: Hard of hearing, GCS 15, NAD, Speech clear SKIN: Warm and dry/Right groin s/nt w/o hematoma or swelling/Stable dry wound to RIGHT great toe/R LE incision intact w/o R/D/S CARDIOVASCULAR: Regular rate and rhythm without murmurs, gallops, or rubs. RESPIRATORY: Breath sounds equal bilaterally. No accessory muscle use. GASTROINTESTINAL: Abdomen soft, non-tender, nondistended./+ flatulence MUSCULOSKELETAL: No cyanosis, or edema Scrotal swelling noted palpable R DP/multiphasic PT/motor intact Biphasic L DP/motor intact Assessment and Plan - Assessment (1) PAD (peripheral artery disease) Code(s): I73.9 - Peripheral vascular disease, unspecified Status: Acute - Plan POD#4 s/p R LE revascularization Looks good- limited mobility Pt w/ expected mild R LE discomfort Palpable R LE distal pulse noted/motor intact - successful revascularization Seen by podiatry, refusing toe amputation Plan Pt clear for D/C to a SNF post hemodialysis Right groin wound VAC to be removed on 08/07/18 in our out pt clinic- pt made aware Discussed and reviewed out pt care and management Continue CV R/F modification w/ a daily ASA/Statin/Plavix Rekha De La Rosa NP [facility] [phone] Discharge Planning: Today to rehab post HD
--- NOTE | 2018-07-31 09:49 | P.DS ---
Discharge Summary - Admission Date 07/27/18 06:16 - Admission Diagnosis (1) PAD (peripheral artery disease) (2) End stage renal disease - Discharge Date 07/31/18 - Discharge Diagnosis (1) S/P femoral-popliteal bypass surgery Status: Acute (2) PAD (peripheral artery disease) Status: Acute - Summary Brief History from admission: 88 yo male with R LE tissue loss, wound worsening failed endovascular therapy Procedure: R fem-BK pop with PTFE Significant Findings: GENERAL: Hard of hearing, GCS 15, NAD, Speech clear SKIN: Warm and dry/Right groin s/nt w/o hematoma or swelling/Stable dry wound to RIGHT great toe/R LE incision intact w/o R/D/S CARDIOVASCULAR: Regular rate and rhythm without murmurs, gallops, or rubs. RESPIRATORY: Breath sounds equal bilaterally. No accessory muscle use. GASTROINTESTINAL: Abdomen soft, non-tender, nondistended./+ flatulence MUSCULOSKELETAL: No cyanosis, or edema Scrotal swelling noted palpable R DP/multiphasic PT/motor intact Biphasic L DP/motor intact Hospital Course: 88/M hard of hearing, speech clear, NAD Pt underwent a RIGHT Lower Extremity Distal bypass (R femoral artery to below the knee popliteal artery) due to worsening tissue loss to R great toe Pt did well post operatively with mild complaints of expected post surgical discomfort to R thigh POD 3 pt with limited mobility and it was recommended to continue rehabilitative services at a SNF Discussed out pt SNF for continued rehabilitative services- pt agrees POD 4 pt doing well and was cleared for d/c to a SNF post HD Wound vac to R groin intact soft/w/o hematoma or swelling- to be removed on in our out pt clinic for optimal wound healing R LE incision intact w/o infectious appearance Palpable R LE distal pulse noted/motor intact - successful revascularization Seen by podiatry, refusing toe amputation Pain Rx written for continued out pt post surgical pain management - Carolina Ray reviewed - Discharge Instructions Any questions or concerns: Call [facility] at [facility] [phone] Discharge Plan - Discharge Disposition Patient Disposition: 03 Discharge to SNF - Discharge Condition Condition: Good - Discharge Order Discharge Orders: Discharge Order (Routine); Ordered 07/31/18 Ordered By: Rekha De La Rosa - Physicians Team Primary Care Provider: Deonte Gardiner Attending Provider: Estiven Maurice Other Providers: Xochilt Nickerson MD ; Nena Nguyen DPM - Rxs /Orders / Referrals /Forms Prescriptions: New aspirin 81 mg Tablet,Chewable 81 mg PO DAILY Qty: 30 RF: 3 atorvastatin 40 mg Tablet 40 mg PO HS Qty: 30 RF: 3 clopidogrel [Plavix] 75 mg Tablet 75 mg PO DAILY Qty: 30 RF: 3 Continue calcium acetate 667 mg Capsule 667 mg PO BID donepezil 10 mg Tablet 10 mg PO DAILY hydroxyzine HCl 25 mg Tablet 25 mg PO QID latanoprost 0.005 % Drops 1 drp OPHTHALMIC (EYE) QPM Referrals: Estiven Maurice MD [Physician] - See Instructions (Follow up on Tuesday at 1:00 for your RIGHT groin wound vac removal ) Deonte Gardiner, [Primary Care Provider] - See Instructions - Discharge Instructions Patient Printed Instructions: Dialysis Diet (GEN), Femoropopliteal Bypass (DC) , Peripheral Vascular Disease (GEN), End Stage Kidney Disease (GEN) - Post Discharge Care Plan Care Plan Goals: Discharge Care Plan Goals After Vascular Surgery Contact: Please call [phone] if you have any problems or have questions regarding your hospitalization. Directions to Meet Your Goals: 1. Diet: * You may resume a regular diet as you were eating at home before your admission. 2. Activity: * Increase your activity level gradually. * Keep surgical extremities elevated when at rest. This will help limit the swelling, bruising and discomfort normally present after surgery. * Walking is a good form of light exercise. Go for a walk at least 3 times per day. * No heavy lifting (lifting over 10 pounds) for at least 4 weeks from surgery. * Check with your surgeon to ensure when you are cleared for heavy lifting and full-intensity exercising. * Your strength will gradually improve. * No driving or operating motorized vehicles while on prescription pain medications. * No swimming until wounds fully healed. * Return to work when cleared by MD/PA/NETWORK/TELECOM ENGINEER. 3. Bathing: Shower daily. * Gently let soap and water run over your incision and pat dry. Do not scrub the incision/wound. * Don't soak in a bath or submerge your incision in water until your incision is healed and evaluated by your physician at follow-up (usually two weeks). 4. Wound Care: INCISION SITE CARE INSTRUCTIONS: * You may leave your incision open to air. * Keep your incision clean and dry, unless showering. See above. * Moisture near the incision will cause the wound to open. * No lotions, creams, ointments, or powders on incisions until they are well- healed. * If you have glue over the incision(s), allow it to fall off naturally in 1-3 weeks * If present, raine/sutures will be removed 2-3 weeks after surgery during your follow-up clinic visit. * If present, change dressing/bandage when soaked/soiled as needed. * Observe wound daily, checking for signs and symptoms of infection including: foul odor, drainage from the incision, increased redness, increased pain at incision, or increased swelling. 5. Pain Control: Expect post-operative pain for 1-4 weeks after surgery. Your pain will improve gradually. * You may have been provided with a prescription for pain medication. Please take as directed, and be aware of side effects such as drowsiness, constipation and mild stomach discomfort. Pain pills on an empty stomach can cause nausea , so eat a small amount of food, such as crackers, when taking these pills. * Take [id number]-eyiabbk stool softeners (Colace or Senna) with your prescribed pain medication. * Acetaminophen (500mg every 6 hours) or Ibuprofen (400mg every 6 hours) may be used in conjunction with narcotics to relieve pain. DO NOT take more than 4 grams (4000mg) of Tylenol in one day, as this can harm your liver. DO NOT take ibuprofen IF: you have an allergy to non-steroidal anti-inflammatory medications, you are taking Coumadin, you have been told you have kidney problems, or you have a history of gastrointestinal bleeding or ulcers. DO NOT take more than 3.2 grams (3200mg) of ibuprofen in one day. * You may also find relief from using heat packs or pads or ice packs. 6. Bowel Regimen for Constipation: * People who undergo surgery are likely to develop post-operative constipation. Exposure to narcotics and changes in diet, fluid intake, and physical activity are known contributors to constipation. We recommend routine stool softeners and/ or laxatives after surgery for most patients. Start by taking one medication. You can increase as directed to relieve constipation. Stop taking these medications if you develop diarrhea. These medications are available over-the- counter and do not require a prescription: * Colace is a stool softener. We recommend starting at 100mg orally twice per day as needed for soft stools and increase to a maximum of 200mg twice daily as needed. * Senna is a laxative that works by keeping water in the intestine to help stool move along the intestinal tract. Take 1 tablet daily as needed for soft stool and increase to a maximum of 2 tablets twice daily as needed. Take Senna with two full glasses of water each time. * Miralax, Dulcolax and Milk of Magnesia are other gfjr-yqo-ovltfbo laxatives that may be used as needed for post-operative constipation. * Drink 6-8 glasses of water per day. * Consume 15-30g of fiber per day: * Metamucil powder, 1-2 tablespoons 1-2 times/day OR Benefiber powder, 2 tablespoons 4 times/day. * Avoid straining. 7. Follow-Up: Do Not miss your follow-up appointment. Keep up with all your appointments and yearly check ups If you have any of the following symptoms please call [phone] immediately: Excessive swelling of the affected extremity Sudden onset of severe or unusual pain in the affected extremity Pain that gets worse or is not relieved by medication Warmth, redness, or swelling in the skin around the wound Foul drainage from incision Extensive bruising or discoloration Wound that opens up or pulls apart Fever above 101.5F or shaking chills Nausea or vomiting Severe diarrhea or severe constipation Dizziness or fainting Chest pain, shortness of breath, or increased work of breathing Weight gain >10 lbs over 3-4 days Inability to urinate for more than 6 hours Cloudy or foul smelling urine Urge to urinate more often than usual Symptoms to Report to Your Doctor: Temperature 101F or higher Pain uncontrolled by medication Drainage or foul odor from incision Extensive bruising or discoloration Chest pain Shortness of breath Nausea, vomiting or dizziness Call 911: Call 911 right away if you have: Sudden onset of chest pain that is not relieved by medications Shortness of breath
--- NOTE | 2018-07-31 20:57 | P.PNNP ---
Subjective Interval history: Patient seen during HD in the afternoon, stable, no SOB, not in distress. Physical Exam Vital signs: Vital Signs 07/30/18 21:00 07/30/18 22:00 07/30/18 23:00 Temperature Pulse Rate 84 86 85 Respiratory Rate Blood Pressure Pulse Oximetry 07/31/18 00:00 07/31/18 01:00 07/31/18 02:00 Temperature 98 F Pulse Rate 86 87 86 Respiratory Rate 16 Blood Pressure 130/60 Pulse Oximetry 95 07/31/18 03:00 07/31/18 03:13 07/31/18 04:00 Temperature 98.2 F Pulse Rate 83 87 88 Respiratory Rate 16 Blood Pressure 145/63 H Pulse Oximetry 95 07/31/18 05:00 07/31/18 05:40 07/31/18 07:00 Temperature Pulse Rate 89 95 H 101 H Respiratory Rate Blood Pressure Pulse Oximetry 07/31/18 08:00 07/31/18 09:00 07/31/18 10:00 Temperature 97.6 F Pulse Rate 96 H 94 H 96 H Respiratory Rate 18 Blood Pressure 126/54 L Pulse Oximetry 96 07/31/18 11:00 07/31/18 12:00 07/31/18 13:00 Temperature 98.1 F Pulse Rate 97 H 98 H 100 H Respiratory Rate 18 Blood Pressure 124/57 L Pulse Oximetry 96 07/31/18 14:00 07/31/18 15:00 07/31/18 15:55 Temperature Pulse Rate 85 85 Respiratory Rate Blood Pressure Pulse Oximetry 98 07/31/18 16:00 07/31/18 17:00 07/31/18 17:30 Temperature Pulse Rate 100 H 103 H Respiratory Rate Blood Pressure 108/52 L Pulse Oximetry 07/31/18 18:00 Temperature Pulse Rate 104 H Respiratory Rate Blood Pressure Pulse Oximetry Intake & Output 07/31/18 07/31/18 08/01/18 06:59 18:59 06:59 Intake Total 240 / 240 480 / 480 Output Total 0 / 0 1999 Balance 240 / 240 -1520 / -1520 Intake: Oral 240 / 240 480 / 480 Output: Urine 0 / 0 0 / 0 Hemodialysis Amount 1999 Other: Date of Last Bowel Movement 07/30/18 07/30/18 Narrative: GENERAL: Alert [place] SKIN: Warm and dry. No rash. Right groin with wound vac on and incision on lower extremity well approximated. NECK: Supple, trachea midline. No JVD CARDIOVASCULAR: Regular rate and rhythm without murmurs, gallops, or rubs. AVF positive thrill and bruit. RESPIRATORY: Breath sounds equal bilaterally. No accessory muscle use. GASTROINTESTINAL: Abdomen soft, non-tender, nondistended. +BS MUSCULOSKELETAL: No cyanosis, or edema. +Pedal pulses, warm BACK: Nontender without obvious deformity. No CVA tenderness. Assessment and Plan - Assessment (1) End stage renal disease Code(s): N18.6 - End stage renal disease Status: Chronic Plan: Patient with end stage renal disease, has been on HD MWF. Admitted with PVD and non healing Rt. big toe ulceration. Patient is Post Rt. Fem-Pop Bypass. HD now, remove fluid as tolerated. K is now normal. BP is stable. Possible discharge and to go to SNF once arranged. (2) PAD (peripheral artery disease) Code(s): I73.9 - Peripheral vascular disease, unspecified Status: Acute Plan: Wound vac intact. Foot with good pulse and warm to touch. - Plan Patient seen and examined, agree with above. BP is stable, seen during HD. Post Rt. Fem-Pop Bypass. Continue HD MWF.
[2018-07-31] MEDS: Latanoprost 0.005% Opth Drops 2.5 ML Bottle EACH EYE SCH (21:06)
[2018-08-01] MEDS: Heparin - SQ 10,000 UNITS/ML Vial SQ SCH (05:12)
--- NOTE | 2018-08-01 07:47 | P.PNVS ---
Subjective Post Op Day #: 5 Procedure: R fem-BK pop with PTFE Subjective/Hospital Course: looks good no complaints foot ok, only tender at toe tip, but pt previously refused amputation with podiatry Objective Vital Signs / I&O: Vital Signs 07/31/18 08:00 07/31/18 09:00 07/31/18 10:00 Temperature 97.6 F Pulse Rate 96 H 94 H 96 H Respiratory Rate 18 Blood Pressure 126/54 L Pulse Oximetry 96 07/31/18 11:00 07/31/18 12:00 07/31/18 13:00 Temperature 98.1 F Pulse Rate 97 H 98 H 100 H Respiratory Rate 18 Blood Pressure 124/57 L Pulse Oximetry 96 07/31/18 14:00 07/31/18 15:00 07/31/18 15:55 Temperature Pulse Rate 85 85 Respiratory Rate Blood Pressure Pulse Oximetry 98 07/31/18 16:00 07/31/18 17:00 07/31/18 17:30 Temperature Pulse Rate 100 H 103 H Respiratory Rate Blood Pressure 108/52 L Pulse Oximetry 07/31/18 18:00 07/31/18 19:00 07/31/18 20:00 Temperature 97.8 F Pulse Rate 104 H 100 H 99 H Respiratory Rate 16 Blood Pressure 124/57 L Pulse Oximetry 93 L 07/31/18 21:53 08/01/18 00:00 08/01/18 04:00 Temperature 98.1 F 97.9 F Pulse Rate 95 H 91 H Respiratory Rate 16 16 Blood Pressure 107/59 L 109/53 L Pulse Oximetry 97 95 94 L Intake & Output 07/31/18 08/01/18 08/01/18 18:59 06:59 18:59 Intake Total 480 / 480 240 / 240 Output Total 1999 0 / 0 Balance -1520 / -1520 240 / 240 Weight 68.3 kg Intake: Oral 480 / 480 240 / 240 Output: Urine 0 / 0 0 / 0 Hemodialysis Amount 1999 Other: Date of Last Bowel Movement 07/30/18 Exam: incisions ok groin Prevena in place warm foot toe tip dry gangrene stable Assessment and Plan - Assessment (1) PAD (peripheral artery disease) Code(s): I73.9 - Peripheral vascular disease, unspecified Status: Acute - Plan POD#5 s/p R LE bypass looks good, bypass open HD yesterday d/c today to SNF Discharge Planning: Today to rehab/ SNF
[2018-08-01] MEDS: Senna/Docusate Sodium 8.6/50 MG Tablet PO SCH (08:54)
[2018-08-01] MEDS: Calcium Acetate 667 MG Capsule PO SCH (08:54)
[2018-08-01 09:34] VITALS: PULSE 92
[2018-08-01 09:37] VITALS: BP 122/56; RESP 18; TEMP 98.6; O2SAT 97
== END 2018-08-01 10:17 | DRG 252 ==
LOC: HSDI 06:16 → HCPC 13:47
PROVIDERS: ADMIT Surgery; ATTEND Surgery
CPT/HCPCS: 36415; 71020; 71046; 73620; 76937; 80048; 80069; 80074; 81001; 84132; 85025; 85027; 85610; 85730; 86850; 86900; 86901; 87086; 90935; 93005; 97110; 97116; 97162; 97530; J0690; J1100; J1170; J1644; J2270; J2370; J2405; J2704; J2710; J2720; J3010; J3370; J7040; J7050; Q4145